=== PATIENT | male | born 1960 | race Caucasian/White ===

== ENCOUNTER 2016-08-09 09:57 | Emergency (ER) | payer MEDICAID ==
[~2016-08-09] VITALS: Ht 175.3 cm; Wt 72.6 kg
[2016-08-09 10:39] VITALS: BP 135/85
[2016-08-09] MEDS ORDERED: Lidocaine 1% MPF 10mg/ml 5ml IM ONE (11:30)
[2016-08-09] MEDS ORDERED: Vancomycin 1gm inj IVPB ONE (11:42)
[2016-08-09] MEDS ORDERED: Vancomycin 1 GM in NS 275 ML IVPB ONE (11:45)
[2016-08-09 13:05] LABS: EOSINOPHILS % (AUTO) 0.9 % (0.0-3.0); LYMPHOCYTES % (AUTO) 35.2 % (20.0-45.0); MEAN CORPUSCULAR HEMOGLOBIN 31.7 PG (27.0-31.0); MEAN CORPUSCULAR HGB CONC 34.4 G/DL (32.0-36.0); MEAN CORPUSCULAR VOLUME 92 FL (80-99); MEAN PLATELET VOLUME 5.6 FL (6.5-10.1); MONOCYTES % (AUTO) 10.9 % (1.0-10.0); PLATELET COUNT 259 K/UL (150-450); RED BLOOD COUNT 4.36 M/UL (4.70-6.10); RED CELL DISTRIBUTION WIDTH 13.4 % (11.6-14.8); WHITE BLOOD COUNT 8.5 K/UL (4.8-10.8)
[2016-08-09 13:21] LABS: ALBUMIN/GLOBULIN RATIO 0.6 (1.0-2.7); CALCIUM 9.5 mg/dL (8.6-10.2); CREATININE 1.3 mg/dL (0.7-1.2); GLOMERULAR FILTRATION RATE 57.3 mL/min (>60); POTASSIUM 4.2 mEQ/L (3.4-4.9)
[2016-08-09 13:35] VITALS: BP 118/73
--- NOTE | 2016-08-09 13:45 | Emergency Room Report ---
History of Present Illness General Chief Complaint: Pain Source: Patient Present Illness HPI Patient has a chronic wound on his left lower extremity. He states that his left foot is more swollen and that he is out of his Lasix and needs his Lasix. He denies fever or chills. He denies nausea or vomiting. He states that this has been a chronic wound for him and been ongoing. He has no other complaints. Allergies: Coded Allergies: No Known Allergies (Unverified , 08/09/16) Patient History Past Medical History: other - HCV Social History: Reports: alcohol use, Denies: drug use, smoking Reviewed Nursing Documentation: PMH: Agreed, PSxH: Agreed Nursing Documentation-PMH Past Medical History: No History, Except For Review of Systems All Other Systems: negative except mentioned in HPI Physical Exam Vital Signs Date Time Temp Pulse Resp B/P Pulse Ox O2 Delivery O2 Flow Rate FiO2 08/09/16 09:52 98.4 70 18 135/85 99 Room Air Sp02 EP Interpretation: reviewed, normal General Appearance: no apparent distress, alert, GCS 15, non-toxic Head: normocephalic, atraumatic Eyes: bilateral eye PERRL, bilateral eye normal inspection ENT: hearing grossly normal, normal pharynx, no angioedema, normal voice Neck: full range of motion, supple/symm/no masses Respiratory: chest non-tender, lungs clear, normal breath sounds, speaking full sentences Cardiovascular #1: regular rate, rhythm, no edema Gastrointestinal: normal bowel sounds, non tender, soft, non-distended, no guarding, no rebound Rectal: deferred Musculoskeletal: back normal, normal range of motion, other - Swelling and erythem of the L. foot. Chronic wound circumferentially around lower L. leg. Neurologic: alert, oriented x3, responsive, motor strength/tone normal, sensory intact, speech normal Psychiatric: judgement/insight normal, memory normal, mood/affect normal, no suicidal/homicidal ideation Skin: normal color, no rash, warm/dry, well hydrated Medical Decision Making Diagnostic Impression: Primary Impression: Cellulitis ER Course This patient has left foot cellulitis. There is also a chronic wound. The patient is requesting Lasix, however, I am concerned that there is an ongoing infection in the left leg and that this is not just edema. I would not expect the erythema and warmth. The laboratory workup to include a CBC and CMP are reassuring. The patient does have some renal dysfunction. I am unsure the acuity of this. Regardless, I do not feel comfortable giving the patient Lasix. I feel this patient should be admitted for further evaluation and treatment. He was given IV vancomycin. The patient's insurance requested his transfer to [facility]. He is stable for transfer. Labs Test 08/09/16 12:43 White Blood Count 8.5 K/UL (4.8-10.8) Red Blood Count 4.36 M/UL (4.70-6.10) Hemoglobin 13.8 G/DL (14.2-18.0) Hematocrit 40.2 % (42.0-52.0) Mean Corpuscular Volume 92 FL (80-99) Mean Corpuscular Hemoglobin 31.7 PG (27.0-31.0) Mean Corpuscular Hemoglobin Concent 34.4 G/DL (32.0-36.0) Red Cell Distribution Width 13.4 % (11.6-14.8) Platelet Count 259 K/UL (150-450) Mean Platelet Volume 5.6 FL (6.5-10.1) Neutrophils (%) (Auto) 52.0 % (45.0-75.0) Lymphocytes (%) (Auto) 35.2 % (20.0-45.0) Monocytes (%) (Auto) 10.9 % (1.0-10.0) Eosinophils (%) (Auto) 0.9 % (0.0-3.0) Basophils (%) (Auto) 1.0 % (0.0-2.0) Sodium Level 134 mEQ/L (135-145) Potassium Level 4.2 mEQ/L (3.4-4.9) Chloride Level 95 mEQ/L (98-107) Carbon Dioxide Level 21 mEQ/L (20-30) Anion Gap 18 (5-15) Blood Urea Nitrogen 28 mg/dL (7-23) Creatinine 1.3 mg/dL (0.7-1.2) Estimat Glomerular Filtration Rate 57.3 mL/min (>60) Glucose Level 108 mg/dL (74-106) Calcium Level 9.5 mg/dL (8.6-10.2) Total Bilirubin 0.8 mg/dL (0.0-1.2) Aspartate Amino Transf (AST/SGOT) 85 U/L (5-40) Alanine Aminotransferase (ALT/SGPT) 48 U/L (3-41) Alkaline Phosphatase 209 U/L (40-129) Total Protein 9.0 g/dL (6.6-8.7) Albumin 3.6 g/dL (3.5-5.2) Globulin 5.4 g/dL Albumin/Globulin Ratio 0.6 (1.0-2.7) Last Vital Signs Date Time Temp Pulse Resp B/P Pulse Ox O2 Delivery O2 Flow Rate FiO2 08/09/16 10:39 97.7 72 18 135/85 99 Room Air Disposition: XFER SHT-TRM HOSP Condition: Stable Referrals: [facility],REFERRING (PCP) SAVANNAH ANDERSON D.O. August 09, 2016 13:45
[2016-08-09 13:52] VITALS: BP 118/73
== END 2016-08-09 13:52 | disposition short-term general hospital (02) ==
LOC: EDBD 09:57 → EMR 11:32
DX: L03.116 Cellulitis of left lower limb (principal)
CPT/HCPCS: 36415; 80053; 85025; 96374; 96375; 99285; J3370; J7050